=== PATIENT | female | born 1970 | race Caucasian/White ===

== ENCOUNTER 2021-02-22 17:43 | Inpatient (IN) | payer BC ==
[2021-02-22 18:20] LABS: #Eosinphils 0.2 thou/uL (0.0-0.7); #Lymphocytes 2.3 thou/uL (1.20-3.40); #Monocytes 0.7 thou/uL (0.11-0.59); #Neutrophils 4.6 thou/uL (1.40-6.50); %Basophils 0.6 % (0.0-1.0); %Eosinophils 2.8 % (0.0-10.0); %Lymphocytes 28.7 % (21.0-51.0); Mean Corpuscular Hemoglobin 30.3 pg (27.0-31.0); Mean Corpuscular Volume 89.1 fL (78.0-98.0); Mean Platelet Volume 7.9 fL (7.4-10.4); Platelet Count 278 thou/uL (130-400); RBC Distribution Width 11.7 % (11.5-14.5); White Blood Cell (WBC) Count 7.8 thou/uL (4.8-10.8)
[2021-02-22 18:40] LABS: ALT (SGPT) 19 U/L (8-55); AST (SGOT) 21 U/L (5-34); Albumin 4.3 g/dL (3.5-5.0); Alkaline Phosphatase 74 U/L (40-110); Anion Gap 13 mmol/L (10-20); BUN (Urea Nitrogen) 28 mg/dL (9.8-20.1); Bilirubin, Total 0.3 mg/dL (0.2-1.2); Calc. Creatinine Clearance 0 mL/min (70-130); Calcium 9.4 mg/dL (7.8-10.44); Carbon Dioxide 24 mmol/L (22-29); Chloride 107 mmol/L (98-107); Globulin 3.2 g/dL (2.4-3.5); Glucose 109 mg/dL (70-105); Lipase 80 U/L (8-78); Protein, Total 7.5 g/dL (6.0-8.3); Sodium 140 mmol/L (136-145)
[2021-02-22 20:40] LABS: Bacteria/HPF 4+ HPF (None Seen); Bilirubin Negative (Negative); Blood, Urine Negative (Negative); Clarity Clear (Clear); Glucose, Urine (Dipstick) Normal (Negative); Ketone, Urine Negative (Negative); Leukocyte 250 Leu/uL (Negative); Nitrite 2+ (Negative); Protein, Urine (Dipstick) Negative (Neg-Trace); RBC/HPF 0-3 HPF (0-3); Specific Gravity, Urine 1.025 (1.002-1.036); Urobilinogen Normal mg/dL (Less than 2); WBC/HPF 21-50 HPF (0-3); pH, Urine 5.5 (5.0-9.0)
[2021-02-22 20:41] LABS: Pregnancy Test - Urine (BHCG) Negative (Negative); Pregu Control Background? CLEAR/WHITE (CLR/WHITE); Pregu Control Bar Appear? YES (CONTROL BAR); Specific Gravity 1.025 (1.002-1.036)
[2021-02-23] MEDS ORDERED: Nitroglycerin 0.4 MG TAB (25 Tab Bottle) SL PRN (00:21)
[2021-02-23] MEDS ORDERED: Ondansetron PF 4 MG/2 ML Vial IVP PRN (00:21)
[2021-02-23] MEDS ORDERED: Ondansetron ODT 4 MG TAB PO PRN (00:21)
[2021-02-23 00:39] LABS: Troponin I Less than 0.010 ng/mL (< 0.028)
[2021-02-23] MEDS ORDERED: Pantoprazole 40 MG VIAL IVP SCH (01:00)
[2021-02-23 01:22] VITALS: BMI 36.3
[2021-02-23] MEDS ORDERED: traZODone HCl 50 MG TAB PO PRN (01:28)
[2021-02-23] MEDS ORDERED: Electrolyte Replacement Protocol 1 EACH FS SCH (01:30)
[2021-02-23] MEDS: cefTRIAXone\\ROCEPHIN 1 GM in Sodium Chloride 0.9% 100 ML IVPB SCH (01:32)
[2021-02-23 02:16] LABS: Bacteria/HPF 4+ HPF (None Seen); Bilirubin Negative (Negative); Blood, Urine Negative (Negative); Clarity Clear (Clear); Glucose, Urine (Dipstick) Normal (Negative); Ketone, Urine Negative (Negative); Leukocyte 25 Leu/uL (Negative); Nitrite 2+ (Negative); Protein, Urine (Dipstick) Negative (Neg-Trace); RBC/HPF 0-3 HPF (0-3); Specific Gravity, Urine 1.019 (1.002-1.036); Squamous Epithelial 0-3 HPF (0-3); Urobilinogen Normal mg/dL (Less than 2); pH, Urine 5.5 (5.0-9.0)
[2021-02-23 02:18] LABS: Urine Culture Reflex Yes Yes
[2021-02-23 04:42] LABS: SARS-CoV-2 PCR by NAA Not Detected (NotDetected)
[2021-02-23 04:51] LABS: #Basophils 0.1 thou/uL (0.0-0.2); #Eosinphils 0.2 thou/uL (0.0-0.7); #Monocytes 0.7 thou/uL (0.11-0.59); #Neutrophils 3.2 thou/uL (1.40-6.50); %Eosinophils 3.4 % (0.0-10.0); %Lymphocytes 41.1 % (21.0-51.0); %Monocytes 9.7 % (0.0-10.0); %Neutrophils 44.8 % (42.0-75.0); Hemoglobin 11.8 g/dL (12.0-16.0); Mean Corpuscular HGB CONC 34.2 g/dL (32.0-36.0); Mean Corpuscular Hemoglobin 30.8 pg (27.0-31.0); Mean Corpuscular Volume 90.1 fL (78.0-98.0); Platelet Count 238 thou/uL (130-400); RBC Distribution Width 11.7 % (11.5-14.5); Red Blood Cell (RBC) Count 3.84 mill/uL (4.20-5.40); White Blood Cell (WBC) Count 7.2 thou/uL (4.8-10.8)
[2021-02-23 05:07] LABS: Anion Gap 11 mmol/L (10-20); BUN (Urea Nitrogen) 22 mg/dL (9.8-20.1); Calc. Creatinine Clearance 74 mL/min (70-130); Calcium 8.6 mg/dL (7.8-10.44); Carbon Dioxide 23 mmol/L (22-29); Chloride 109 mmol/L (98-107); Glucose 93 mg/dL (70-105); Potassium 3.8 mmol/L (3.5-5.1); Sodium 139 mmol/L (136-145)
[2021-02-23] MEDS: Levothyroxine Sodium 75 MCG TAB PO SCH (05:07)
[2021-02-23 05:14] LABS: Troponin I Less than 0.010 ng/mL (< 0.028)
[2021-02-23] MEDS: Pantoprazole 40 MG VIAL IVP SCH (08:21)
[2021-02-23] MEDS: Lisinopril/Hydrochlorothiazide 20 mg/12.5 mg Tablet PO SCH (08:22)
[2021-02-23] MEDS ORDERED: ADENOSINE 60 MG/20 ML VIAL ONE (11:08)
[2021-02-23 13:37] LABS: ALT (SGPT) 20 U/L (8-55); AST (SGOT) 22 U/L (5-34); Albumin 3.7 g/dL (3.5-5.0); Alkaline Phosphatase 64 U/L (40-110); Bilirubin, Direct 0.2 mg/dL (0.1-0.3); Bilirubin, Total 0.4 mg/dL (0.2-1.2); Lipase 70 U/L (8-78); Magnesium 1.8 mg/dL (1.6-2.6); Protein, Total 6.6 g/dL (6.0-8.3)
[2021-02-23] MEDS ORDERED: Magnesium 2 GM/50 ML 2 GM in Premix Bag 1 BAG IVPB SCH (13:45)
[2021-02-23] MEDS: Sodium Chloride 0.45% 1,000 ML IV SCH (14:18)
[2021-02-23] MEDS: Acetaminophen 325 MG TAB PO PRN (20:47)
[2021-02-24] MEDS: cefTRIAXone\\ROCEPHIN 1 GM in Sodium Chloride 0.9% 100 ML IVPB SCH (01:09)
[2021-02-24] MEDS: Sodium Chloride 0.45% 1,000 ML IV SCH ×2 (04:56→19:36)
[2021-02-24] MEDS: Levothyroxine Sodium 75 MCG TAB PO SCH (05:05)
[2021-02-24 05:21] LABS: #Eosinphils 0.2 thou/uL (0.0-0.7); #Lymphocytes 2.5 thou/uL (1.20-3.40); #Monocytes 0.5 thou/uL (0.11-0.59); #Neutrophils 2.8 thou/uL (1.40-6.50); %Basophils 0.6 % (0.0-1.0); %Eosinophils 3.1 % (0.0-10.0); %Lymphocytes 42.3 % (21.0-51.0); Hemoglobin 11.8 g/dL (12.0-16.0); Mean Corpuscular HGB CONC 33.5 g/dL (32.0-36.0); Mean Corpuscular Volume 89.6 fL (78.0-98.0); Mean Platelet Volume 7.8 fL (7.4-10.4); Platelet Count 229 thou/uL (130-400); RBC Distribution Width 11.7 % (11.5-14.5); Red Blood Cell (RBC) Count 3.93 mill/uL (4.20-5.40)
[2021-02-24 05:47] LABS: Anion Gap 16 mmol/L (10-20); BUN (Urea Nitrogen) 21 mg/dL (9.8-20.1); Calc. Creatinine Clearance 75 mL/min (70-130); Calcium 8.6 mg/dL (7.8-10.44); Carbon Dioxide 19 mmol/L (22-29); Chloride 107 mmol/L (98-107); Glucose 84 mg/dL (70-105); Magnesium 2.1 mg/dL (1.6-2.6); Potassium 3.7 mmol/L (3.5-5.1); Sodium 138 mmol/L (136-145)
[2021-02-24] MEDS: Lisinopril/Hydrochlorothiazide 20 mg/12.5 mg Tablet PO SCH (07:35)
[2021-02-24] MEDS: Acetaminophen 325 MG TAB PO PRN (07:35)
[2021-02-24] MEDS: Pantoprazole 40 MG VIAL IVP SCH (07:36)
[2021-02-24] MEDS ORDERED: Calcium Carbonate 500 MG ChewTAB PO PRN (08:56)
[2021-02-24] MEDS ORDERED: Zolpidem Tartrate 5 MG TAB PO PRN (08:56)
[2021-02-24] MEDS ORDERED: Senokot S 8.6-50 MG TAB PO PRN (08:56)
[2021-02-24] MEDS ORDERED: GUAIFENESIN SF SOLN 200 MG/10 ML UDCUP PO PRN (08:56)
[2021-02-24] MEDS ORDERED: Loperamide HCl 2 MG CAP PO PRN (08:56)
[2021-02-24] MEDS ORDERED: Bisacodyl 5 MG TAB PO PRN (08:56)
[2021-02-24] MEDS ORDERED: Loratadine 10 MG TAB PO PRN (08:56)
[2021-02-24] MEDS ORDERED: Cepastat Lozenges 1 LOZ PO PRN (08:56)
[2021-02-24] MEDS ORDERED: Sodium Chloride 0.65% Nasal 44 ML BOT EA NARE PRN (08:56)
[2021-02-24] MEDS ORDERED: hydrALAZINE 20 MG/ML VIAL SLOW IVP PRN (08:56)
[2021-02-24] MEDS ORDERED: Famotidine/PF 20 mg/2ml Vial ONE (12:48)
[2021-02-24] MEDS ORDERED: Midazolam HCl 2 mg/2 ml Vial ONE (14:45)
[2021-02-24] MEDS ORDERED: Fentanyl 100 MCG/2 ML VIAL ONE ×3 (14:45→17:00)
[2021-02-24] MEDS ORDERED: Dexmedetomidine 200 MCG/2 ML VIAL ONE (15:09)
[2021-02-24] MEDS ORDERED: Lidocaine 1% w/Epinephrine 1:100K 20 ML VIAL ONE (15:23)
[2021-02-24] MEDS ORDERED: Bupivacaine 0.25% HCL 30 ML VIAL ONE (15:23)
[2021-02-24] MEDS ORDERED: Rocuronium Bromide 10 MG/ML (10ML VIAL) ONE (15:34)
[2021-02-24] MEDS ORDERED: Dexamethasone 20 MG/5 ML VIAL ONE (15:34)
[2021-02-24] MEDS ORDERED: Ondansetron PF 4 MG/2 ML Vial ONE (15:34)
[2021-02-24] MEDS ORDERED: Ketorolac Tromethamine 30 MG/ML VIAL ONE (15:34)
[2021-02-24] MEDS ORDERED: PROPOFOL 200 MG/20 ML VIAL ONE (15:34)
[2021-02-24] MEDS ORDERED: Glycopyrrolate 0.2 MG/ML 5 ML SYRINGE ONE (15:34)
[2021-02-24] MEDS ORDERED: Lidocaine 1% PF 5 ML VIAL ONE (15:34)
[2021-02-24] MEDS ORDERED: PACU-Morphine 4MG/ML VIAL SLOW IVP PRN (16:58)
[2021-02-24] MEDS ORDERED: Promethazine HCl 25 MG/ML VIAL SLOW IVP PRN (16:58)
[2021-02-24] MEDS ORDERED: Promethazine HCl 25 MG/ML VIAL IM PRN (16:58)
[2021-02-24] MEDS ORDERED: HYDROmorphone 2 MG/ML VIAL SLOW IVP PRN (16:58)
[2021-02-24] MEDS ORDERED: Ondansetron HCl/PF 4 MG/2 ML Vial IVP PRN (16:58)
[2021-02-24] MEDS ORDERED: Promethazine HCl 12.5 MG in Sodium Chloride 0.9% 50 ML IVPB PRN (18:13)
[2021-02-24] MEDS: HYDROcodone/Acetaminophen 5/325 mg Tablet PO PRN ×2 (19:07→22:51)
[2021-02-25] MEDS: cefTRIAXone\\ROCEPHIN 1 GM in Sodium Chloride 0.9% 100 ML IVPB SCH (00:41)
[2021-02-25] MEDS: Sodium Chloride 0.45% 1,000 ML IV SCH (03:05)
[2021-02-25 05:23] LABS: #Lymphocytes 0.9 thou/uL (1.20-3.40); #Monocytes 0.1 thou/uL (0.11-0.59); #Neutrophils 10.6 thou/uL (1.40-6.50); %Basophils 0.1 % (0.0-1.0); %Eosinophils 0.1 % (0.0-10.0); %Lymphocytes 7.8 % (21.0-51.0); %Monocytes 1.1 % (0.0-10.0); %Neutrophils 90.9 % (42.0-75.0); Hemoglobin 11.8 g/dL (12.0-16.0); Mean Corpuscular HGB CONC 34.1 g/dL (32.0-36.0); Mean Corpuscular Hemoglobin 30.2 pg (27.0-31.0); Mean Corpuscular Volume 88.5 fL (78.0-98.0); Mean Platelet Volume 8.2 fL (7.4-10.4); Platelet Count 239 thou/uL (130-400); RBC Distribution Width 11.4 % (11.5-14.5); Red Blood Cell (RBC) Count 3.91 mill/uL (4.20-5.40); White Blood Cell (WBC) Count 11.7 thou/uL (4.8-10.8)
[2021-02-25] MEDS: Levothyroxine Sodium 75 MCG TAB PO SCH (06:25)
[2021-02-25] MEDS: Pantoprazole 40 MG VIAL IVP SCH (07:11)
[2021-02-25] MEDS: Lisinopril/Hydrochlorothiazide 20 mg/12.5 mg Tablet PO SCH (09:15)
[2021-02-25 12:29] VITALS: BP 100/44; TEMP 98.3
== END 2021-02-25 12:50 | disposition home or self-care (01) | DRG 418 ==
LOC: ERS 17:43 → 2SW 23:07 → OBSVTOIN 23:07
PROVIDERS: ADMIT Student in an Organized Health Care Education/Training Program; ATTEND Internal Medicine
PROC: 0FT44ZZ Resection of Gallbladder, Percutaneous Endoscopic Approach (ICD-10-PCS; principal; 2021-02-22)
DX: K80.20 Calculus of gallbladder without cholecystitis without obstruction (principal); N17.9 Acute kidney failure, unspecified; N39.0 Urinary tract infection, site not specified; I10 Essential (primary) hypertension; E03.9 Hypothyroidism, unspecified; Z87.442 Personal history of urinary calculi; Z91.040 Latex allergy status; Z98.51 Tubal ligation status; Z82.49 Family history of ischemic heart disease and other diseases of the circulatory system; R07.9 Chest pain, unspecified
CPT/HCPCS: 36415; 71045; 74176; 76705; 78452; 80048; 80053; 80076; 81001; 81003; 81015; 81025; 83605; 83690; 83735; 84484; 85025; 87086; 87635; 88304; 93005; 93017; 94760; 96365; 96366; 96375; 96376; A9500; C9113; G0378; J0153; J0696; J1100; J1885; J2250; J2405; J2550; J2704; J3010; J3475; J3490; S0020; S0028; U0003; U0005

== ENCOUNTER 2022-03-13 09:00 | Outpatient (CLI) | payer BC | END 2022-03-13 09:01 | disposition home or self-care (01) | LOC: DTY/OP 09:00 | PROVIDERS: ATTEND Surgery | DX: E66.01 Morbid (severe) obesity due to excess calories (principal) | CPT/HCPCS: 97802 ==

== ENCOUNTER 2022-05-07 07:10 | Outpatient (CLI) | payer BC ==
[2022-05-07 08:45] LABS: #Basophils 0.1 10x3/uL (0.0-0.2); #Eosinphils 0.2 10x3/uL (0.0-0.5); #Monocytes 0.6 10x3/uL (0.0-1.1); #Neutrophils 4.4 10x3/uL (1.5-8.4); %Basophils 1.1 % (0.0-2.0); %Eosinophils 2.4 % (0.0-6.0); %Lymphocytes 28.2 % (18.0-47.0); %Monocytes 8.7 % (0.0-10.0); %Neutrophils 59.2 % (40.0-75.0); Hemoglobin 13.5 g/dL (12.0-15.5); Mean Corpuscular HGB CONC 35.2 g/dL (32.0-36.0); Mean Corpuscular Hemoglobin 30.3 pg (27.0-33.0); Mean Corpuscular Volume 86.3 fl (81.6-98.3); Mean Platelet Volume 10.7 fl (7.4-10.4); Platelet Count 313 10x3/uL (150-450); Red Blood Cell (RBC) Count 4.45 10x6/uL (3.90-5.03); White Blood Cell (WBC) Count 7.4 10x3/uL (3.5-10.5)
[2022-05-07 09:19] LABS: ALT (SGPT) 25 U/L (8-55); AST (SGOT) 26 U/L (5-34); Albumin 4.7 g/dL (3.5-5.0); Alkaline Phosphatase 76 U/L (40-110); Anion Gap 19 mmol/L (10-20); BUN (Urea Nitrogen) 36 mg/dL (9.8-20.1); Bilirubin, Total 0.4 mg/dL (0.2-1.2); Calc. Creatinine Clearance 0 mL/min (70-130); Calcium 10.1 mg/dL (7.8-10.44); Carbon Dioxide 22 mmol/L (22-29); Chloride 102 mmol/L (98-107); Glucose 100 mg/dL (70-105); Potassium 4.5 mmol/L (3.5-5.1); Protein, Total 7.7 g/dL (6.0-8.3); Sodium 138 mmol/L (136-145)
[2022-05-07 12:39] LABS: Hemoglobin A1c 5.5 % (4.0-6.0)
== END 2022-05-07 07:11 | disposition home or self-care (01) ==
LOC: LABBT 07:10
PROVIDERS: ATTEND Surgery
DX: Z01.818 Encounter for other preprocedural examination (principal); E66.01 Morbid (severe) obesity due to excess calories; Z20.822 Contact with and (suspected) exposure to COVID-19
CPT/HCPCS: 71046; 80053; 83036; 85025; 93005; 93010; U0003; U0005

== ENCOUNTER 2022-05-07 07:15 | Inpatient (IN) | payer BC ==
[2022-05-11 09:55] VITALS: BMI 36.6
[2022-05-12] MEDS ORDERED: Bupivacaine 0.25% HCL 30 ML VIAL ONE (06:42)
[2022-05-12] MEDS ORDERED: Lidocaine 1% w/Epinephrine 1:100K 20 ML VIAL ONE (06:42)
[2022-05-12] MEDS ORDERED: Heparin 5,000 UNITS/ML VIAL ONE (06:55)
[2022-05-12] MEDS ORDERED: SUGAMMADEX SODIUM 200 MG/2 ML VIAL ONE (06:56)
[2022-05-12] MEDS ORDERED: fentaNYL Citrate/PF 100 MCG/2 ML SYRINGE ONE (06:56)
[2022-05-12] MEDS ORDERED: Ketamine 50 MG/ML (10ML VIAL) ONE (06:56)
[2022-05-12] MEDS ORDERED: Promethazine HCl 25 MG/ML VIAL ONE (07:13)
[2022-05-12] MEDS ORDERED: Sodium Chloride 0.9% 100 ML ONE (07:28)
[2022-05-12] MEDS ORDERED: CEFAZOLIN 2 GM VIAL ONE (07:28)
[2022-05-12] MEDS ORDERED: Lidocaine 1% PF 5 ML VIAL ONE (07:39)
[2022-05-12] MEDS ORDERED: Esmolol 100 MG/10 ML VIAL ONE (07:39)
[2022-05-12] MEDS ORDERED: PROPOFOL 200 MG/20 ML VIAL ONE (07:39)
[2022-05-12] MEDS ORDERED: Ondansetron PF 4 MG/2 ML Vial ONE (07:39)
[2022-05-12] MEDS ORDERED: Rocuronium Bromide 10 MG/ML (10ML VIAL) ONE (07:39)
[2022-05-12] MEDS ORDERED: Dexamethasone 20 MG/5 ML VIAL ONE (07:39)
[2022-05-12] MEDS ORDERED: PHENYLEPHRINE-NS 100 MCG/ML 10 ML SYRINGE ONE (07:39)
[2022-05-12] MEDS ORDERED: Glycopyrrolate 0.2 MG/ML 5 ML SYRINGE ONE (07:39)
[2022-05-12] MEDS ORDERED: diphenhydrAMINE 50 MG/ML VIAL IVP PRN ×2 (08:11→10:31)
[2022-05-12] MEDS ORDERED: Ondansetron HCl/PF 4 MG/2 ML Vial IVP PRN (08:11)
[2022-05-12] MEDS ORDERED: fentaNYL Citrate/PF 2,000 MCG in Sodium Chloride 0.9% 60 ML IV PRN (08:11)
[2022-05-12] MEDS ORDERED: Ondansetron PF 4 MG/2 ML Vial IVP PRN ×2 (08:11→10:31)
[2022-05-12] MEDS ORDERED: Naloxone HCl 0.4 mg/ml Vial IV PRN (08:11)
[2022-05-12] MEDS ORDERED: diphenhydrAMINE 50 MG/ML VIAL IM PRN (08:11)
[2022-05-12] MEDS ORDERED: diphenhydrAMINE 25 MG CAP PO PRN (08:11)
[2022-05-12] MEDS ORDERED: Promethazine HCl 25 MG/ML VIAL IM PRN ×3 (08:11→10:31)
[2022-05-12] MEDS ORDERED: Promethazine HCl 25 MG/ML VIAL IVPB PRN (08:11)
[2022-05-12] MEDS ORDERED: Communication Order-Pharmacy FS SCH (08:15)
[2022-05-12] MEDS ORDERED: Dextrose 5% in Water 1,000 ML IV PRN (10:31)
[2022-05-12] MEDS ORDERED: hydrALAZINE 20 MG/ML VIAL SLOW IVP PRN (10:31)
[2022-05-12] MEDS ORDERED: Dextrose 50% Abboject 50 ML SYRINGE SLOW IVP PRN (10:31)
[2022-05-12] MEDS ORDERED: traZODone HCl 50 MG TAB PO PRN (10:31)
[2022-05-12] MEDS ORDERED: D5 1/2 NS w/20 mEq KCL 1,000 ML ONE (10:54)
[2022-05-12] MEDS: D5 1/2 NS w/20 mEq KCL 1,000 ML IV SCH ×2 (10:58→18:51)
[2022-05-12] MEDS ORDERED: Enoxaparin Sodium 40 MG/0.4 ML SYRINGE SC SCH (21:00)
[2022-05-13] MEDS: D5 1/2 NS w/20 mEq KCL 1,000 ML IV SCH ×2 (03:02→11:14)
[2022-05-13] MEDS ORDERED: Hydrocodone-Acetamin 15 ML UDCUP PO PRN (05:53)
[2022-05-13 05:55] LABS: #Lymphocytes 2.5 thou/uL (1.20-3.40); #Monocytes 0.8 thou/uL (0.11-0.59); #Neutrophils 6.9 thou/uL (1.40-6.50); %Basophils 0.2 % (0.0-1.0); %Eosinophils 0.4 % (0.0-10.0); %Lymphocytes 24.6 % (21.0-51.0); %Monocytes 7.7 % (0.0-10.0); %Neutrophils 67.1 % (42.0-75.0); Hemoglobin 11.4 g/dL (12.0-16.0); Mean Corpuscular HGB CONC 33.4 g/dL (32.0-36.0); Mean Corpuscular Hemoglobin 30.8 pg (27.0-31.0); Mean Corpuscular Volume 92.2 fL (78.0-98.0); Mean Platelet Volume 8.8 fL (7.4-10.4); Platelet Count 218 thou/uL (130-400); Red Blood Cell (RBC) Count 3.71 mill/uL (4.20-5.40); White Blood Cell (WBC) Count 10.3 thou/uL (4.8-10.8)
[2022-05-13] MEDS ORDERED: Levothyroxine Sodium 88 MCG TAB PO SCH (06:00)
[2022-05-13 06:37] LABS: Anion Gap 11 mmol/L (10-20); BUN (Urea Nitrogen) 10 mg/dL (9.8-20.1); Calc. Creatinine Clearance 84 mL/min (70-130); Calcium 8.9 mg/dL (7.8-10.44); Carbon Dioxide 26 mmol/L (22-29); Chloride 106 mmol/L (98-107); Estimated GFR 55; Glucose 122 mg/dL (70-105); Potassium 4.2 mmol/L (3.5-5.1); Sodium 139 mmol/L (136-145)
[2022-05-13 08:35] VITALS: TEMP 98.2
[2022-05-13] MEDS ORDERED: Pantoprazole 40 MG VIAL IVP SCH (09:00)
[2022-05-13] MEDS ORDERED: Lisinopril/Hydrochlorothiazide 20 mg/12.5 mg Tablet PO SCH (09:00)
[2022-05-13] MEDS ORDERED: Aripiprazole 10 MG TAB PO SCH (09:00)
[2022-05-13] MEDS ORDERED: Amlodipine 10 MG TAB PO SCH (09:00)
[2022-05-13] MEDS ORDERED: DULoxetine 60 MG CAP PO SCH (09:00)
[2022-05-13 12:23] VITALS: BP 97/66
== END 2022-05-13 13:33 | disposition home or self-care (01) | DRG 621 ==
LOC: SURG A 05-12 06:05 → SJJU 05-12 13:17
PROVIDERS: ADMIT Surgery; ATTEND Surgery
PROC: 0DB64Z3 Excision of Stomach, Percutaneous Endoscopic Approach, Vertical (ICD-10-PCS; principal; 2022-05-12)
PROC: 8E0W4CZ Robotic Assisted Procedure of Trunk Region, Percutaneous Endoscopic Approach (ICD-10-PCS; 2022-05-12)
DX: E66.01 Morbid (severe) obesity due to excess calories (principal); Z68.36 Body mass index [BMI] 36.0-36.9, adult; I10 Essential (primary) hypertension
CPT/HCPCS: 36415; 80048; 85025; 88307; C9113; J0690; J1100; J1644; J1650; J2405; J2550; J2704; J3480; J3490; S0020